=== PATIENT | female | born 2000 | race Caucasian/White ===

== ENCOUNTER 2020-02-16 22:49 | Emergency (ER) | payer BC ==
[~2020-02-16] VITALS: Ht 160 cm; Wt 68.2 kg
[2020-02-17 02:10] LABS: BASO % 0.3 % (0.0-2.0); EOS % 0.1 % (0-4.0); GRAN # 9.1 (1.4-6.5); GRAN % 83.5 % (42.2-75.2); HEMATOCRIT 37.9 % (35.0-45.0); HEMOGLOBIN 12.9 g/dl (12.0-15.0); LYMPH # 1.2 (1.2-3.4); LYMPH % 10.8 % (20.0-51.0); MEAN CELL VOLUME 85 fl (80.0-95.0); MEAN CORPUSCULAR HEMOGLOBIN 29 pg (26.0-32.0); MEAN CORPUSCULAR HGB CONC 34 g/dl (33.0-37.0); MEAN PLATELET VOLUME 9.8 fl (7.4-10.4); MONO # 0.6 (0.1-0.6); MONO % 5.1 % (1.7-9.3); PLATELET COUNT 287 K/mm3 (130-400); RED BLOOD COUNT 4.46 M/mm3 (4.10-5.30); REDCELL DISTRIBUTION WIDTH-CV 12.1 % (11.5-14.5)
[2020-02-17 02:20] LABS: ALANINE AMINOTRANSFERASE 13 U/L (4-34); ALBUMIN 4.3 gm/dL (3.5-5.0); ALKALINE PHOSPHATASE 63 U/L (50-136); ANION GAP 6 mmol/L (7-16); AST,SGOT 22 U/L (15-37); BILIRUBIN,TOTAL 0.3 mg/dL (0.0-1.0); BLOOD UREA NITROGEN 15 mg/dL (7-17); CALCIUM 8.9 mg/dL (8.4-10.2); CARBON DIOXIDE 24 mmol/L (22-30); CHLORIDE 109 mmol/L (98-107); CREATININE, serum 0.75 (0.52-1.25); GLUCOSE 107 mg/dL (74-106); POTASSIUM 4.4 mmol/L (3.4-5.0); SODIUM 139 mmol/L (137-145); TOTAL PROTEIN 7.4 gm/dL (6.4-8.2)
[2020-02-17 02:21] LABS: C-REACTIVE PROTEIN < 0.5 mg/dL (0.0-0.9)
[2020-02-17 02:29] LABS: TROPONIN-I < 0.012 ng/mL (0.000-0.035)
[2020-02-17 03:05] VITALS: BP 132/70; PULSE 80; TEMP 98.1
== END 2020-02-17 03:05 | disposition home or self-care (01) ==
LOC: COL.ER 22:49
PROVIDERS: Physician Assistant
DX: J06.9 Acute upper respiratory infection, unspecified (principal); Z32.02 Encounter for pregnancy test, result negative
CPT/HCPCS: J1885; J7030

== ENCOUNTER 2020-03-02 20:04 | Emergency (ER) | payer BC ==
[~2020-03-02] VITALS: Ht 160 cm; Wt 68.2 kg
[2020-03-02 20:07] VITALS: BP 118/77; PULSE 97; TEMP 97.9
[2020-03-02] MEDS ORDERED: ZOLOFT 50MG50 MG PO (20:25)
[2020-03-02] MEDS ORDERED: ROBAXIN 50500 MG/TAB PO (20:25)
== END 2020-03-02 21:55 | disposition home or self-care (01) ==
LOC: COL.ER 20:04
DX: F41.9 Anxiety disorder, unspecified (principal)